=== PATIENT | male | born 1960 | race Two or more races ===

== ENCOUNTER 2021-09-03 10:01 | Inpatient (IN) | payer MEDICAID ==
[~2021-09-03] VITALS: Ht 180.3 cm; Wt 88.0 kg
--- NOTE | 2021-09-03 10:41 | NUR ---
DR CHAUHAN AT BEDSIDE FOR BLOOD DRAW.
--- NOTE | 2021-09-03 11:00 | NUR ---
SOLVENT PROCESS EXTRACTOR OPERATOR AT BEDSIDE FOR BLOOD DRAW
[2021-09-03] MEDS: IV NS 0.9% 1,000 ML BAG IV ONE ×2 (11:46→13:06)
[2021-09-03 12:08] LABS: CALCIUM, SERUM 8.8 mg/dL (8.5-10.1); CREATININE 0.9 mg/dL (0.6-1.3); POTASSIUM 4.5 mmol/L (3.5-5.1)
[2021-09-03 12:13] LABS: BASOPHILS # (AUTO) 0.1 K/uL (0.0-0.2); BASOPHILS % (AUTO) 0.7 % (0.0-2.0); EOSINOPHILS % (AUTO) 2.1 % (0.0-6.0); HEMATOCRIT 36 % (39-51); HEMOGLOBIN 11.6 g/dL (13.5-17.5); LYMPHOCYTES # (AUTO) 0.9 K/uL (0.8-4.8); LYMPHOCYTES % (AUTO) 9.2 % (20.0-44.0); MEAN CORPUSCULAR HGB CONC 33 g/dl (31.0-36.0); MEAN CORPUSCULAR VOLUME 84 fL (80-96); MONOCYTES # (AUTO) 0.7 K/uL (0.1-1.30); MONOCYTES % (AUTO) 6.8 % (2.0-12.0); NEUTROPHILS # (AUTO) 8.4 K/uL (1.8-8.9); NEUTROPHILS % (AUTO) 81.2 % (43.0-81.0); PLATELET COUNT (AUTO) 250 K/uL (150-450); RED BLOOD CELL COUNT(AUTO) 4.22 MIL/uL (4.5-6.0); WHITE BLOOD COUNT (AUTO) 10.3 K/uL (4.3-11.0)
--- NOTE | 2021-09-03 12:40 | NUR ---
ASSUME PATIENT CARE. TO ER BED 7, HERE C/O MODERATE SOB AND FACIAL SWELLING FOR THE PAST 3 DAYS. FACIAL SWELLING ALREADY SUBSIDED TODAY. PT DENIES ANY CHEST PAIN UPON ARRIVAL. PT THINKS HE IS EXPOSED TO "SIMS POISON." ELEVATED TROPONIN LEVEL WAS CALLED IN BY LAB. APPEARS ANXIOUS. TELE READS AFIB W/ RATE 160'S DR CHAUHAN AWARE OF TELE READ. AWAITING ORDERS.
--- NOTE | 2021-09-03 12:40 | NUR ---
Note yonatantree in EDM - 09/03/21 at 1337 by CHRISTINE ASSUME PATIENT CARE. TO ER BED 7, HERE C/O MODERATE SOB AND FACIAL SWELLING FOR THE PAST 3 DAYS. FACIAL SWELLING ALREADY SUBSIDED TODAY. PT DENIES ANY CHEST PAIN UPON ARRIVAL. PT THINKS HE IS EXPOSED TO "SIMS POISON." ELEVATED TROPONIN LEVEL WAS CALLED IN BY LAB. STABLE VITAL SIGNS. WILL CONTINUE TO MONITOR.
[2021-09-03] MEDS ORDERED: DILTIAZEM HCL 50 MG IV IV ONE ×2 (13:30→14:00)
[2021-09-03] MEDS ORDERED: DILTIAZEM HCL 50 MG IV ONE (13:40)
--- NOTE | 2021-09-03 14:18 | NUR ---
[facility] CALLED PSYCHIATRIC RN PAGED.
--- NOTE | 2021-09-03 14:28 | NUR ---
Covid swab done and sent to the lab.
--- NOTE | 2021-09-03 14:40 | NUR ---
HISTORIAN RESEARCH ASSISTANT AT BEDSIDE FOR BLE DUPLEX ULTRASOUND.
[2021-09-03] MEDS ORDERED: IOHEXOL-350 100 ML VIAL IV ONE (14:46)
[2021-09-03] MEDS ORDERED: IV NS 0.9% 250 ML IV ONE (14:47)
--- NOTE | 2021-09-03 14:56 | NUR ---
PT TO RADIOLOGY FOR CTA CHEST [place]IA [place].
[2021-09-03] MEDS ORDERED: DILTIAZEM HCL IV 125 MG in IV NS 0.9% 100 ML IV ONE (15:00)
[2021-09-03] MEDS ORDERED: ONDANSETRON HCL/PF 4 MG/2 ML VIAL IVP PRN (15:30)
[2021-09-03] MEDS ORDERED: DILTIAZEM HCL IV 125 MG in IV NS 0.9% 100 ML IV PRN (16:00)
[2021-09-03] MEDS ORDERED: ALBUTEROL FS 2.5 MG/0.5 ML VIAL.NEB IH PRN (16:00)
[2021-09-03 16:54] LABS: C-REACTIVE PROTEIN 3.8 mg/dL (0.0-0.9)
[2021-09-03] MEDS ORDERED: DEXAMETHASONE SOD PHOSPHATE 10 MG/ML VIAL IV SCH (17:00)
--- NOTE | 2021-09-03 17:14 | NUR ---
REPORT GIVEN TO MEHREEN BARRON. AWAITING TRANSFER.
[2021-09-03] MEDS: ACETAMINOPHEN 325 MG TABLET PO PRN ×2 (17:57→23:56)
[2021-09-03] MEDS ORDERED: AMIODARONE 150 MG in IV D5W 100 ML IV ONE (18:00)
[2021-09-03] MEDS ORDERED: AMIODARONE 450 MG in IV D5W 250 ML IV PRN ×2 (18:00→18:55)
[2021-09-03] MEDS ORDERED: CEFTRIAXONE 1 G in IV D5W 50 ML IV SCH (19:00)
[2021-09-03] MEDS: AMIODARONE 450 MG in IV D5W 241 ML IV PRN (19:16)
--- NOTE | 2021-09-03 19:20 | NUR ---
RN NOTES RECEIVED REPORT FROM MORNING RN. PATIENT IN BED A/O X4 ABLE TO MAKE NEEDS KNOWN NO SOB NO DISTRESS NOTED AT THIS TIME. WITH OXYGEN INHALATION AT 3LMP VIA NC TOLERATING WELL SATING 98%. WITH IV ACCESS AT L AC #20, L HAND # 20 PATENT FLUSHES WELL. PATIENT IS AFIB AT 150'S AMIODARONE 1MG @33.333 ML/HR STARTED. VITAL SIGNS TAKEN AND RECORDED. ALL SAFETY MEASURES IN PLACE AT ALL TIMES. CALL LIGHT WITHIN REACH. BED ON LOWEST POSITION AND LOCKED. WILL CLOSELY MONITOR THE PATIENT.
--- NOTE | 2021-09-03 19:41 | NUR ---
CLOSING NOTES PT IS RESTING IN BED, ON AMIO DRIP. INGRID ENDORSED TO AUTO ADJUDICATION SPECIALIST NURSE. PT IS TACHY. HR IN 140'S. NO LABORED BREATHING AT THE MOMENT. PT JAMEY CHEST PAIN. ALL SAFETY MEASURES IN PLACE, BED IN LOWEST LOCKED POSITION, CALL LIGHT WITHIN REACH. SR UP X 3.
[2021-09-03 20:00] VITALS: BP 126/96
[2021-09-03] MEDS: ENOXAPARIN SODIUM 80 MG/0.8 ML DISP.SYRIN SQ SCH (20:55)
[2021-09-04] VITALS: BP 122/93
[2021-09-04] MEDS ORDERED: DILTIAZEM HCL 30 MG TABLET PO SCH (01:30)
[2021-09-04] MEDS: AMIODARONE 450 MG in IV D5W 241 ML IV PRN (03:08)
[2021-09-04 03:13] LABS: BASOPHILS # (AUTO) 0.1 K/uL (0.0-0.2); BASOPHILS % (AUTO) 0.6 % (0.0-2.0); EOSINOPHILS % (AUTO) 2.6 % (0.0-6.0); HEMATOCRIT 34 % (39-51); LYMPHOCYTES # (AUTO) 1.2 K/uL (0.8-4.8); LYMPHOCYTES % (AUTO) 10.6 % (20.0-44.0); MEAN CORPUSCULAR HGB CONC 33 g/dl (31.0-36.0); MEAN CORPUSCULAR VOLUME 84 fL (80-96); MONOCYTES # (AUTO) 0.8 K/uL (0.1-1.30); NEUTROPHILS # (AUTO) 9.3 K/uL (1.8-8.9); NEUTROPHILS % (AUTO) 79.2 % (43.0-81.0); PLATELET COUNT (AUTO) 234 K/uL (150-450); RED BLOOD CELL COUNT(AUTO) 3.99 MIL/uL (4.5-6.0); WHITE BLOOD COUNT (AUTO) 11.7 K/uL (4.3-11.0)
[2021-09-04 03:26] LABS: ALBUMIN 2.6 g/dL (3.4-5.0); BILIRUBIN,TOTAL 0.4 mg/dL (0.2-1.0); CALCIUM, SERUM 8.3 mg/dL (8.5-10.1); CREATININE 0.9 mg/dL (0.6-1.3); PHOSPHORUS 3.5 mg/dL (2.5-4.9); POTASSIUM 4.2 mmol/L (3.5-5.1); TOTAL PROTEIN, SERUM 6.3 g/dL (6.4-8.2)
[2021-09-04 03:38] LABS: THYROID STIMULATING HORMONE 1.932 uIU/mL (0.358-3.74)
[2021-09-04 04:00] VITALS: BP 138/98
--- NOTE | 2021-09-04 04:00 | NUR ---
RN NOTES RELAYED DR. MELENDEZ TROPONIN 0.413. PATIENT STILL ON AMIODARONE DRIP AT 0.5 MG/MIN 16.667ML/HR. VITAL SIGNS WNL. WILL CONTINUE TO MONITOR.
[2021-09-04] MEDS ORDERED: DILTIAZEM HCL 30 MG TABLET PO ONE (06:00)
--- NOTE | 2021-09-04 06:45 | NUR ---
RN NOTES PATIENT STILL AFIB ON 150'S. DENIES ANY CHEST PAIN AND DIZZINESS STILL ON AMIODARONE DRIP AT 0.5MG/MIN 16.667 ML/HR. ON OXYGEN INHALATION AT 2LPM VIA NC SATING 98%. ALL DUE MEDS GIVEN ORDERED. ALL SAFETY MEASURES IN PLACE AT ALL TIMES. BED ON LOWEST POSITION AND LOCKED HOB ELEVATED. CALL LIGHT WITHIN REACH. ALL NEEDS ATTENDED PROMPTLY. WILL CONTINUE TO MONITOR THE PATIENT CLOSELY.
--- NOTE | 2021-09-04 07:45 | NUR ---
RN OPEN NOTES PATIENT RECEIVED IN BED ALERT AND ORIENTED X4 TELE READING AFIB ON 150'S. DENIES ANY CHEST PAIN AND DIZZINESS AT THIS TIME, IV ON THE LAC #20 RUNNING AMIODARONE DRIP AT 0.5MG/MIN ON OXYGEN INHALATION AT 2LPM VIA NC SATING 97%. PT IS COMPLAINING OF GENERALIZED PAIN AT THE MOMENT, WILL ADDRESS ALL HIS NEEDS, ALL SAFETY MEASURES IN PLACE AT ALL TIMES. BED ON LOWEST POSITION AND LOCKED HOB ELEVATED. CALL LIGHT WITHIN REACH. WILL CONTINUE TO MONITOR
[2021-09-04 08:00] VITALS: BP 166/107
[2021-09-04] MEDS: ACETAMINOPHEN 325 MG TABLET PO PRN ×2 (08:02→14:09)
[2021-09-04] MEDS: ENOXAPARIN SODIUM 80 MG/0.8 ML DISP.SYRIN SQ SCH ×2 (08:03→20:08)
--- NOTE | 2021-09-04 08:23 | NUR ---
RN NOTE PT IS ON UNCONTROLLED AFIB HR 150S 160S CARDIZEM PO GIVEN, CHARGE NURSE NOTIFIED, TYLENOL ALSO GIVEN, WILL MONITOR CLOSELY
[2021-09-04] MEDS: METOPROLOL TARTRATE 50 MG TABLET PO SCH ×2 (11:01→17:08)
--- NOTE | 2021-09-04 11:02 | NUR ---
RN NOTE DOCTOR JONNY NOTIFIED ABOUT UNCONTROLLED A FIB HR 150/160s HE RECOMMENDED TO START METOPROLOL PO NOW. WILL CONTINUE TO MONITOR
[2021-09-04] MEDS: PIPERACILLIN /TAZOBACTAM 3.375 G in IV D5W 50 ML IV SCH ×2 (11:19→17:08)
[2021-09-04 12:00] VITALS: BP 127/78
[2021-09-04] MEDS ORDERED: AZITHROMYCIN 250 MG TABLET PO SCH (15:30)
[2021-09-04 15:49] LABS: BILIRUBIN,URINE SMALL (NEGATIVE); COLOR,URINE YELLOW (YELLOW); LEUKOCYTE ESTERASE ,URINE NEGATIVE (NEGATIVE); NITRITE, URINE NEGATIVE (NEGATIVE); PH,URINE 5.5 (5.0-8.0); PROTEIN,URINE 100 mg/dl (NEGATIVE); UGLUCOSE NEGATIVE (NEGATIVE); UROBILINOGEN,URINE 0.2 EU/dL (0.2)
[2021-09-04 16:00] VITALS: BP 114/86
[2021-09-04] MEDS: AMIODARONE HCL 200 MG TABLET PO SCH (17:08)
[2021-09-04 17:49] LABS: BACTERIA,URINE Few /HPF (None Seen); RBC,URINE NONE SEEN /HPF (0-2); SQUAMOUS EPITHELIAL CELL,UR Few /HPF (None Seen); WBC,URINE NONE SEEN /HPF (0-3)
[2021-09-04 17:50] LABS: URINE AMORPHOUS URATE Many /HPF (None Seen)
--- NOTE | 2021-09-04 18:33 | NUR ---
RN CLOSING NOTES PATIENT REMAINS RESTING IN BED ALERT AND ORIENTED X4 TELE READING AFIB UNCONTROLLED ON 130S. DOCTOR JONNY NOTIFIED, DENIES ANY CHEST PAIN AND DIZZINESS AT THIS TIME, IV ON THE LAC #20 PATENT AND FLUSHING WELL, ON OXYGEN INHALATION AT 2LPM VIA NC SATING 97%. PAIN MEDICINE GIVEN Q6 HOURS, ALL HIS NEEDS ADDRESS, SAFETY MEASURES IN PLACE AT ALL TIMES. BED ON LOWEST POSITION AND LOCKED HOB ELEVATED. CALL LIGHT WITHIN REACH. WILL ENDORSE TO NON GARMENT SEWING MACHINE OPERATORPROOFING MACHINE OPERATOR
--- NOTE | 2021-09-04 19:40 | NUR ---
PATIENT AWAKE A/O X4, NO SOB/ACUTE DISTRESS NOTED ON 2LPM VIA NC WITH O2 98% AT THIS TIME, S/P AMIODARONE DRIP, STILL AFIB UNCONTROLLED IN TELE MONITOR WITH HR 110-130S, DR FULLER AWARE, DENIES ANY CHEST PAIN/DISCOMFORT, IV ON THE LAC #20 PATENT AND INTACT, ALL SAFETY MEASURES IN PLACE , BED LOCKED AND LOWEST POSITION, CALL LIGHT WITHIN REACH, WILL CONTINUE TO MONITOR CLOSELY.
[2021-09-04 20:00] VITALS: BP 121/90
--- NOTE | 2021-09-04 21:00 | NUR ---
PATIENT C/O INABILITY TO SLEEP, AND HAD A LIMITED SLEEP LAST NIGHT, AND REQUESTING SLEEPING PILL, INFORMED [employer] TEACH[employer] AND REPLIED WITH ORDER FOR AMBIEN 5MG X ONE, ORDER NOTED AND CARRIED OUT, WILL ADMINISTER MEDICATION ORDERED.
[2021-09-04] MEDS ORDERED: ZOLPIDEM TARTRATE 10 MG TABLET PO ONE (22:00)
[2021-09-05] VITALS: BP 147/96
[2021-09-05] MEDS: AMIODARONE HCL 200 MG TABLET PO SCH ×4 (00:08→17:07)
[2021-09-05] MEDS: METOPROLOL TARTRATE 50 MG TABLET PO SCH ×4 (00:08→17:07)
[2021-09-05] MEDS: PIPERACILLIN /TAZOBACTAM 3.375 G in IV D5W 50 ML IV SCH ×4 (00:09→17:07)
[2021-09-05 04:00] VITALS: BP 131/74
--- NOTE | 2021-09-05 06:46 | NUR ---
PATIENT SLEEPING AT THIS TIME, AROUSES TO VERBAL STIMULI, NO SOB/ACUTE DISTRESS NOTED ON 2LPM VIA NC WITH O2 98% AT THIS TIME, CONTINUE AFIB UNCONTROLLED IN TELE MONITOR WITH HR 110-130S, DR FULLER AWARE, ON AMIODARONE PO AND METOPROLOL Q6H, OTHERWISE NO SIGNIFICANT CHANGE IN CONDITION DURING THE NIGHT, ALL SAFETY MEASURES IN PLACE , BED LOCKED AND LOWEST POSITION, CALL LIGHT WITHIN REACH, WILL ENDORSE CONTINUITY OF CARE TO ONCOMING NURSE.
[2021-09-05 06:49] LABS: BASOPHILS # (AUTO) 0.1 K/uL (0.0-0.2); BASOPHILS % (AUTO) 0.8 % (0.0-2.0); EOSINOPHILS % (AUTO) 2.2 % (0.0-6.0); HEMATOCRIT 35 % (39-51); HEMOGLOBIN 11.4 g/dL (13.5-17.5); LYMPHOCYTES # (AUTO) 1.3 K/uL (0.8-4.8); LYMPHOCYTES % (AUTO) 11.5 % (20.0-44.0); MEAN CORPUSCULAR HGB CONC 33 g/dl (31.0-36.0); MEAN CORPUSCULAR VOLUME 83 fL (80-96); MONOCYTES # (AUTO) 0.9 K/uL (0.1-1.30); MONOCYTES % (AUTO) 8.1 % (2.0-12.0); NEUTROPHILS # (AUTO) 8.5 K/uL (1.8-8.9); NEUTROPHILS % (AUTO) 77.4 % (43.0-81.0); PLATELET COUNT (AUTO) 252 K/uL (150-450); RED BLOOD CELL COUNT(AUTO) 4.17 MIL/uL (4.5-6.0)
[2021-09-05 07:32] LABS: ALBUMIN 2.4 g/dL (3.4-5.0); BILIRUBIN,TOTAL 0.4 mg/dL (0.2-1.0); CALCIUM, SERUM 8.3 mg/dL (8.5-10.1); MAGNESIUM 2.1 mg/dL (1.8-2.4); PHOSPHORUS 3.5 mg/dL (2.5-4.9); POTASSIUM 4.1 mmol/L (3.5-5.1); TOTAL PROTEIN, SERUM 6.1 g/dL (6.4-8.2)
[2021-09-05 08:00] VITALS: BP 121/76
--- NOTE | 2021-09-05 08:00 | NUR ---
LALA RN NOTE PATIENT IN BED ,ALERT ORIENTED ON TELE MONITOR AFIB HR 130 ON 4L NC, NO SOB NOTED AT THIS TIME, LT AC HL AND;T HABD HL INTACT ANF FLUSHED WELL BED IN LOWEST AND LOCKED POSITION , CALL LIGHT WITHIN REACH
[2021-09-05] MEDS: ENOXAPARIN SODIUM 80 MG/0.8 ML DISP.SYRIN SQ SCH ×2 (08:33→20:51)
[2021-09-05] MEDS: DIGOXIN INJ 0.5 MG/2 ML AMPUL IV SCH ×2 (11:18→17:07)
--- NOTE | 2021-09-05 11:54 | NUR ---
alethea rn note [facility] aware that hr 130 afib, also ordered psych eval for anxiety . faxed face form to [facility] [place]
[2021-09-05 12:00] VITALS: BP 119/49
--- NOTE | 2021-09-05 14:31 | NUR ---
ilan rn note rounds made ,all needs attended not in distress ,will cont to monitor
[2021-09-05 16:00] VITALS: BP 129/87
[2021-09-05] MEDS ORDERED: DILTIAZEM HCL IV 125 MG in IV NS 0.9% 100 ML IV PRN (16:00)
--- NOTE | 2021-09-05 17:13 | NUR ---
ilan rn note still afib hr 122-130 on digoxin iv ,will monitor
--- NOTE | 2021-09-05 18:15 | NUR ---
RN CLOSING NOTES PATIENT IN BED A/O X4 AND REMAINED STABLE THROUGHOUT THE SHIFT. TELE READING AFIB ON 114-120'S. DENIES ANY CHEST PAIN, SOB AND DIZZINESS AT THIS TIME, IV ON THE LAC #20 INTACT AND FLUSHES WELL. ON OXYGEN SUPPLEMENTATION AT 4LPM VIA NC SATING 96%. PT DENIES ANY PAIN AT THIS MOMENT, ALL NEEDS ATTENDED TO. ALL MEDS ADMINISTERED ORDERED. ALL SAFETY MEASURES IN PLACE AT ALL TIMES. BED ON LOWEST POSITION AND LOCKED HOB ELEVATED. CALL LIGHT WITHIN REACH. WILL CONTINUE ENDORSE TO TAIL TRIMMER NURSE.
--- NOTE | 2021-09-05 19:10 | NUR ---
RN NOTES RECEIVED REPORT FROM MORNING RN. PATIENT A/O X4. ON OXYGEN INHALATION AT 4LPM VIA NASAL CANULA SATING 96%. PATIENT DENIES ANY PAIN, NO SOB NOT IN DISTRESS AT THIS TIME. WITH IV ACCESS AT L AC#20 R HAND #20 PATENT FLUSHES WELL. VITAL SIGNS TAKEN AND RECORDED AFEBRILE. ALL SAFETY MEASURES IN PLACE. HOB ELEVATED. CALL LIGHT WITHIN REACH. BED ON LOWEST POSITION AND LOCKED. PATIENT STILL AFIB UNCONTROLLED AT 120'S. WILL CLOSELY MONITOR THE PATIENT.
[2021-09-05 20:00] VITALS: BP 127/90
[2021-09-06] VITALS: BP 133/94
[2021-09-06] MEDS: AMIODARONE HCL 200 MG TABLET PO SCH ×2 (00:17→06:05)
[2021-09-06] MEDS: DIGOXIN INJ 0.5 MG/2 ML AMPUL IV SCH (00:17)
[2021-09-06] MEDS: METOPROLOL TARTRATE 50 MG TABLET PO SCH ×3 (00:17→12:59)
[2021-09-06] MEDS: PIPERACILLIN /TAZOBACTAM 3.375 G in IV D5W 50 ML IV SCH ×2 (00:18→06:04)
[2021-09-06] MEDS ORDERED: ZOLPIDEM TARTRATE 5 MG TABLET PO PRN (00:30)
[2021-09-06] MEDS ORDERED: ZOLPIDEM TARTRATE 10 MG TABLET PO PRN (00:30)
[2021-09-06 04:00] VITALS: BP 133/76
--- NOTE | 2021-09-06 06:57 | NUR ---
RN NOTES PATIENT REMAINS STABLE NO SIGNIFICANT CHANGES. PATIENT DENIES ANY PAIN OR DISCOMFORT. PATIENT STILL AFIB UNCONTROLLED ON 110'S. ALL DUE MEDS GIVEN ORDERED. ALL NEEDS ATTENDED PROMPTLY. ALL SAFETY MEASURES IN PLACE AT ALL TIMES. HOB ELEVATED. CALL LIGHT WITHIN REACH. BED ON LOWEST POSITION AND LOCKED. WILL ENDORSED TO MORNING RN FOR INGRID
[2021-09-06 07:15] LABS: BASOPHILS # (AUTO) 0.2 K/uL (0.0-0.2); BASOPHILS % (AUTO) 1.5 % (0.0-2.0); EOSINOPHILS % (AUTO) 3.2 % (0.0-6.0); HEMATOCRIT 34 % (39-51); HEMOGLOBIN 11.3 g/dL (13.5-17.5); LYMPHOCYTES # (AUTO) 1.1 K/uL (0.8-4.8); MEAN CORPUSCULAR HGB CONC 33 g/dl (31.0-36.0); MEAN CORPUSCULAR VOLUME 84 fL (80-96); MONOCYTES # (AUTO) 0.8 K/uL (0.1-1.30); MONOCYTES % (AUTO) 8.1 % (2.0-12.0); NEUTROPHILS # (AUTO) 7.7 K/uL (1.8-8.9); NEUTROPHILS % (AUTO) 76.2 % (43.0-81.0); PLATELET COUNT (AUTO) 250 K/uL (150-450); RED BLOOD CELL COUNT(AUTO) 4.09 MIL/uL (4.5-6.0); WHITE BLOOD COUNT (AUTO) 10.1 K/uL (4.3-11.0)
--- NOTE | 2021-09-06 07:30 | NUR ---
RN MORNING NOTE PT OBSERVED IN BED SLEEPING WITH HOB SEMI FOWLERS. PT ON 2L NC SAT 97% TOLERATING WELL WITH NO LABORED BREATHING OR DISTRESS. PT A/OX4 WITH BRP AND ON TELE MONITOR A FIB UNCONTROLLED 110HR. PT ON CARDIAC DIET. IV ACCESS L AC 20G AND L HAND 20G. BED IS LOCKED IN LOWEST POSITION X2 GUARD RAILS UP, CALL JAMISON WITHIN REACH, WILL CONTINUE TO MONITOR THIS SHIFT.
[2021-09-06 08:00] VITALS: BP 131/100
[2021-09-06 08:30] LABS: CALCIUM, SERUM 8.7 mg/dL (8.5-10.1); CREATININE 1.1 mg/dL (0.6-1.3); MAGNESIUM 2.1 mg/dL (1.8-2.4); PHOSPHORUS 3.5 mg/dL (2.5-4.9); POTASSIUM 4.4 mmol/L (3.5-5.1)
[2021-09-06] MEDS ORDERED: APIXABAN 5 MG TABLET PO SCH (09:30)
[2021-09-06 12:00] VITALS: BP 141/74
[2021-09-06 12:59] VITALS: BP 137/79
[2021-09-06] MEDS ORDERED: DIGOXIN 0.125 MG TABLET PO SCH (13:00)
[2021-09-06] MEDS ORDERED: AMIODARONE HCL 200 MG TABLET PO SCH (13:00)
--- NOTE | 2021-09-06 14:20 | NUR ---
RN NOTE PT IS AWOL. NURSING COPPING MACHINE OPERATOR NOTIFIED, SECURITY NOTIFIED AND WALKED PERIMETER, PT NOT FOUND. THIS NURSE CALLED NEXT OF KIN, LAURA BARBER (BROTHER [phone]) AND DID NOT MAKE CONTACT. WILL TRY TO MAKE CONTACT, AGAIN .
--- NOTE | 2021-09-06 14:30 | NUR ---
RN NOTE THIS NURSE CALLED NEXT OF KIN AGAIN, LUARA BARBER (BROTHER [phone]). NO CONTACT MADE. WILL TRY TO MAKE CONTACT, AGAIN .
--- NOTE | 2021-09-06 14:45 | NUR ---
RN NOTE THIS NURSE CALLED NEXT OF KIN THIRD TIME, LAURA BARBER (BROTHER [phone]) AND DID NOT MAKE CONTACT.
== END 2021-09-06 14:03 | disposition left against medical advice (07) | DRG 812 ==
LOC: ER 10:13 → TRANSITION 15:08 → TELE1 16:54 → TELE-TD 17:46 → TELE1 09-06 10:52
PROVIDERS: ADMIT Registered Nurse; ATTEND Registered Nurse
DX: T43.621A Poisoning by amphetamines, accidental (unintentional), initial encounter (principal); I21.A1 Myocardial infarction type 2; I27.21 Secondary pulmonary arterial hypertension; J18.9 Pneumonia, unspecified organism; J90 Pleural effusion, not elsewhere classified; I48.91 Unspecified atrial fibrillation; R22.0 Localized swelling, mass and lump, head; Z20.822 Contact with and (suspected) exposure to COVID-19; T40.711A Poisoning by cannabis, accidental (unintentional), initial encounter; Y92.009 Unspecified place in unspecified non-institutional (private) residence as the place of occurrence of the external cause; F12.90 Cannabis use, unspecified, uncomplicated; F41.9 Anxiety disorder, unspecified; J98.11 Atelectasis
CPT/HCPCS: 36415; 71045-TC; 80048-TC; 80053-TC; 81001; 82550-TC; 82553; 82728-TC; 83615-TC; 83735-TC; 84100-TC; 84443-TC; 84484-TC; 85025-TC; 85378-TC; 86140-TC; 87081-TC; 93307-TC; 93970-TC; 97110-TC; 97116-TC; 97530-TC; C9803; G0378; J0282; J0696; J1160; J1650; J2543; J3490; J7030; J7050; J7060; Q9967; U0003